=== PATIENT | male | born 1995 | race Caucasian/White ===

== ENCOUNTER 2017-08-28 12:06 | Emergency (ER) | payer BC, OTHER ==
[~2017-08-28] VITALS: Ht 180.3 cm; Wt 70.0 kg
[2017-08-28 12:13] VITALS: TEMP 36.9; Ht 180.3 cm; Wt 70.0 kg
[2017-08-28] MEDS ORDERED: OXYCODONE HCL IR 5 MG TAB (IMMEDIATE RELEASE) PO STA (12:25)
--- NOTE | 2017-08-28 12:43 | EMERGENCY ROOM VISIT NOTE ---
History First contact with patient: 12:15 Chief Complaint: DENTAL PAIN Stated Complaint: SEVERE PAIN,POSSIBLE ROOT CANAL LATER-REFERRED Nursing Triage Summary: is supposed to have root canal at 3 today for tooth pain but was having pain so he called dentist and they told him to come here History of Present Illness The patient is a 22 year old male who presents to the Emergency Room with complaints of dental pain. The patient reports he has been having pain in his right upper back molar. He called his dentist and they scheduled him for an appointment this afternoon. He states that he attempted to go to a second class today and was not able to because the pain was so severe. He has been taking ibuprofen without relief. He called his dentist today to see what he should do for the pain in the toes and to come here. He denies any fevers/ chills or facial swelling. Review of Systems A 6 point review of systems was reviewed with the patient with pertinent positives and negatives as per history of present illness. All else were negative. Social History Smoking Status: Current Every Day Smoker Current/Historical Medications No Active Prescriptions or Reported Meds Physical Exam Vital Signs Date Time Temp Pulse Resp B/P (MAP) Pulse Ox O2 Delivery O2 Flow Rate FiO2 08/28/17 12:50 77 16 133/70 98 08/28/17 12:13 36.9 81 16 151/104 97 Physical Exam VITALS: Vitals are noted on the nurse's note and reviewed by myself. Vital signs stable. GENERAL: This is a 22-year-old male, in no acute distress, nondiaphoretic, well- developed well-nourished. EARS: External auditory canals clear, tympanic membranes pearly sal without erythema or effusion bilaterally. EYES: Pupils equal round and reactive to light and accommodation. MOUTH: Mucous membranes moist. There is no significant erythema or edema of the gums. No facial swelling. NECK: Supple without nuchal rigidity. No lymphadenopathy. NEURO: Patient was alert and oriented to person place and time. Medical Decision & Procedures Medications Administered Medications (Trade) Dose Ordered Sig/Dell Route Start Time Stop Time Status Last Admin Dose Admin Oxycodone HCl (Roxicodone Immediate Rel Tab) 5 mg NOW STAT PO 08/28/17 12:25 08/28/17 12:27 DC 08/28/17 12:50 5 MG Medical Decision The patient was evaluated as above. There is no facial swelling or fever. The patient likely has a periapical abscess. He is scheduled for a root canal in 2.5 hours. He was given 1 tablet of OxyIR here and discharged to follow-up with his dentist as prescribed. Medication Reconcilliation Current Medication List: was personally reviewed by me Blood Pressure Screening Patient's blood pressure: Normal blood pressure Impression Primary Impression: Pain, dental Departure Information Dispostion Home / Self-Care Condition GOOD Prescriptions No Active Prescriptions or Reported Meds Patient Instructions My [facility] Additional Instructions You have been treated in the Emergency Department for Dental Pain. You have received pain medicine in the emergency department which impairs your ability to operate a vehicle. It is illegal for you to drive after receiving these medicines. For pain control, you can use the following vixo-aso-tdagaso medicines (if >12 yo): - Regular strength (325mg/tab) Tylenol (acetaminophen) 2 tabs every 4-6 hours as needed. Do not exceed 12 tablets in a 24 hour period. Avoid taking more than 4 grams (4000 mg) of Tylenol per day. This includes any other sources of acetaminophen you may take on a regular basis. - Regular strength (200 mg/tab) Advil (ibuprofen) 1-2 tabs every 4-6 hours as needed. Do not exceed a dose of 3200 mg per day. Follow-up with your dentist today as scheduled. Return to the emergency department if you develop the following symptoms despite treatment course outlined above: fever, intractable pain, increased redness, swelling, or purulent discharge.
[2017-08-28 12:50] VITALS: BP 133/70; PULSE 77; O2SAT 98
[2017-08-28] MEDS ORDERED: OXYC1TAB3 PO (18:53)
== END 2017-08-28 12:51 | disposition home or self-care (01) ==
LOC: C.EDB 12:09 → C.EDD 12:51
DX: K08.89 Other specified disorders of teeth and supporting structures (principal); F17.200 Nicotine dependence, unspecified, uncomplicated

== ENCOUNTER 2017-08-28 18:25 | Emergency (ER) | payer OTHER ==
[~2017-08-28] VITALS: Ht 182.9 cm; Wt 69.6 kg
[2017-08-28 18:33] VITALS: TEMP 37; Ht 182.9 cm; Wt 69.6 kg
[2017-08-28] MEDS ORDERED: OXYC1TAB3 PO (18:53)
--- NOTE | 2017-08-28 18:55 | EMERGENCY ROOM VISIT NOTE ---
ED Visit Note First contact with patient: 18:40 CHIEF COMPLAINT: Toothache HISTORY OF PRESENT ILLNESS: This 22-year-old male patient presented to the emergency department secondary today, with a progressive toothache for past week. The patient believes it is coming from his #2 tooth. The patient states he immediately root canal in that tooth, and did see his dentist today. He states the dentist was going to perform the procedure this afternoon, but upon assessment of the tooth, states he did not get comfortable, as there was a previous sealant over the tooth. The patient was referred to an oral surgeon, now has appointment scheduled for Thursday. The patient states that the dentist did not prescribe him any medications, as he did not perform the procedure. The patient presents to the emergency department today to obtain a prescription for pain medication to get him through until Thursday. The pain is now steady and severe, and has been worsening since earlier this week. They rate their pain a 7/10 and the ibuprofen they have been taking has not relieved the pain. Denies facial swelling or fever. The patient denies any discharge from the mouth. REVIEW OF SYSTEMS: A 6 system review of systems was completed with positives and pertinent negatives listed in the HPI. ALLERGIES: None MEDICATIONS: None PMH: None SOCIAL HISTORY: The patient is from [place]. He lives locally as a [employer] student. He denies drug, alcohol use. The patient states he does smoke cigarettes occasionally. PHYSICAL EXAM: Vitals are noted on the nurse's note and reviewed by myself. Vital signs stable. Temperature 37.0C orally. GENERAL: This is a 22 year old white male, in no acute distress, nondiaphoretic, well-developed well- nourished. Mouth: The #2 tooth is very carious and the gum is swollen and tender around it, without any discharge or signs of an abscess. The remainder of the pharynx and tonsils are without erythema, edema, or exudate. The airway is patent. There is no facial swelling, cervical or submandibular lymphadenopathy. The patient appears uncomfortable and in pain. The patient has overall good dental hygiene. EARS: External auditory canals clear, tympanic membranes pearly sal without erythema or effusion bilaterally. ED COURSE: The patient was seen and evaluated as above. He presents today complaining of dental pain, and states he is in need of a root canal, however due to previous procedure performed on the tooth which is of concern, his dentist was unable to perform the root canal today. The patient will see an oral surgeon on Thursday of next week for this procedure. He states the pain has been difficult to manage at home over the past few days, and he requests pain medication. PDMP for Q[place] and did not reveal any suspicious findings. I did have a long discussion with the patient regarding proper management of pain with OTC medications. The patient verbalizes understanding. I advised the patient that he is to use narcotic pain medication very sparingly, and he is not to drive or operate machinery while taking this medication. I advised him that the ER is incapable of chronically managing his pain, and encouraged him to keep the appointment he has scheduled for next Thursday with the oral surgeon. Discharge instructions reviewed, and patient was discharged home in good condition. PDMP was reviewed with no suspicious findings noted. I attest that I have personally reviewed the patient's current medication list. Blood Pressure Screening: Patient was found to have a slightly elevated blood pressure due to circumstances. I do not believe that the patient requires hypertension monitoring. DIFFERENTIAL DIAGNOSIS: Odontalgia, abscess, sinusitis, cellulitis, otitis media , malignancy, and others DIAGNOSIS: Odontalgia Current/Historical Medications Scheduled PRN Oxycodone Ir (Roxicodone Ir), 1 TAB PO Q4H PRN for Pain Allergies Coded Allergies: No Known Allergies (Unverified , 08/28/17) Vital Signs Date Time Temp Pulse Resp B/P (MAP) Pulse Ox O2 Delivery O2 Flow Rate FiO2 08/28/17 19:18 71 16 123/83 95 08/28/17 18:33 37.0 80 18 148/77 96 Room Air Departure Information Impression Primary Impression: Pain, dental Dispostion Home / Self-Care Condition GOOD Prescriptions Oxycodone Ir (Roxicodone Ir) 5 Mg Tab 1 TAB PO Q4H Y for Pain, #12 TAB For Initial Treatment Prov: Emelia Rodriguez PA-C 08/28/17 Referrals No Doctor, Assigned (PCP) Patient Instructions [facility] Additional Instructions You have been treated in the Emergency Department for Dental Pain. You have been prescribed OxyIR to be used for pain control. This is a narcotic medication. You cannot drive or consume alcohol while on this medicine. This medicine should only be used for pain that cannot be controlled with over-the- counter pain medicines. For pain control, you can use the following aqwn-ntk-szuyure medicines (if >12 yo): Ibuprofen(Motrin, Advil) may be used for fever or pain. Use 600mg every six hours as needed. Take with food. Avoid using more than 2400mg in a 24 hour period. Do not use 2400mg per day for more than three consecutive days without physician direction. Prolonged inappropriate use can lead to stomach upset or ulcers. (AND/OR) Acetaminophen(Tylenol) may be used for fever or pain. Use 1000mg every six hours as needed. Avoid using more than 3000mg in a 24 hour period. *Alternate these medications every 3-4 hours, then use OxyIR for breakthrough pain Refrain from smoking cigarettes or using chewing tobacco until you have been evaluated by your dentist. Keeping beverages lukewarm and consuming soft foods can decrease your pain. Warm compresses over the affected area may offer some relief. You MUST seek evaluation of your dental pain by a dentist following your visit to the Emergency Department. The Emergency Department is not capable of treating dental issues long-term. You should call your dentist as soon as possible to make an appointment for evaluation of your dental pain. Return to the emergency department if you develop the following symptoms despite treatment course outlined above: fever, intractable pain, increased redness, swelling, or purulent discharge.
[2017-08-28 19:18] VITALS: BP 123/83; PULSE 71; O2SAT 95
== END 2017-08-28 19:18 | disposition home or self-care (01) ==
LOC: C.EDB 18:26 → C.EDD 19:18
DX: K08.89 Other specified disorders of teeth and supporting structures (principal)

== ENCOUNTER 2017-10-08 00:13 | Emergency (ER) | payer BC ==
[~2017-10-08] VITALS: Ht 181.6 cm; Wt 73.4 kg
[2017-10-08 00:13] VITALS: TEMP 36.5; O2SAT 96; Ht 181.6 cm; Wt 73.4 kg
[~2017-10-08 00:13] MED LIST: OXYC1TAB3 PO
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
[2017-10-08 01:01] LABS: CALCIUM 8.7 mg/dl (8.5-10.1); CREATININE 0.97 mg/dl (0.60-1.40); POTASSIUM 3.3 mmol/L (3.5-5.1)
[2017-10-08 05:01] VITALS: BP 115/55
[2017-10-08 05:20] VITALS: PULSE 85; O2SAT 94
== END 2017-10-08 05:25 | disposition home or self-care (01) ==
LOC: EDBD 00:13 → C.EDB 00:15
DX: F10.129 Alcohol abuse with intoxication, unspecified (principal); Y90.8 Blood alcohol level of 240 mg/100 ml or more